=== PATIENT | female | born 1960 | race Caucasian/White ===

== ENCOUNTER 2018-11-03 18:36 | Emergency (ER) | payer OTHER ==
[~2018-11-03] VITALS: Ht 165.1 cm; Wt 55.3 kg
[2018-11-03] MEDS ORDERED: LEXAPRO5 MG (18:50)
[2018-11-03] MEDS ORDERED: CIPRO100 MG (18:51)
== END 2018-11-03 23:36 | disposition home or self-care (01) ==
LOC: ER 18:36
DX: N83.292 Other ovarian cyst, left side (principal); M54.5 Low back pain; R10.2 Pelvic and perineal pain; K80.20 Calculus of gallbladder without cholecystitis without obstruction

== ENCOUNTER 2019-04-15 15:25 | Outpatient (CLI) | payer OTHER ==
[~2019-04-15 15:25] MED LIST: CIPRO100 MG; LEXAPRO5 MG
== END 2019-04-15 15:27 | disposition home or self-care (01) ==
LOC: RAD 15:25
DX: M25.561 Pain in right knee (principal); M54.6 Pain in thoracic spine

== ENCOUNTER 2019-05-11 10:04 | Outpatient (CLI) | payer OTHER | END 2019-05-11 15:02 | disposition home or self-care (01) | LOC: RAD 10:04 | DX: M54.5 Low back pain (principal); M54.2 Cervicalgia ==

== ENCOUNTER 2019-05-11 10:46 | Outpatient (CLI) | payer OTHER | END 2019-05-11 11:18 | disposition home or self-care (01) | LOC: LAB 10:46 | DX: E55.9 Vitamin D deficiency, unspecified (principal); M85.88 Other specified disorders of bone density and structure, other site; E21.3 Hyperparathyroidism, unspecified; E88.89 Other specified metabolic disorders; M81.8 Other osteoporosis without current pathological fracture; E56.1 Deficiency of vitamin K ==

== ENCOUNTER 2019-05-11 10:56 | Outpatient (CLI) | payer OTHER | END 2019-05-11 11:19 | disposition home or self-care (01) | LOC: LAB 10:56 | DX: R10.2 Pelvic and perineal pain (principal); N83.292 Other ovarian cyst, left side; R19.09 Other intra-abdominal and pelvic swelling, mass and lump; N95.1 Menopausal and female climacteric states ==

== ENCOUNTER 2019-08-08 13:13 | Emergency (ER) | payer OTHER ==
[~2019-08-08] VITALS: Ht 162.6 cm; Wt 55.3 kg
[2019-08-08] MEDS ORDERED: BENICAR20 MG (13:36)
== END 2019-08-08 18:34 | disposition home or self-care (01) ==
LOC: ER 13:13
DX: R42 Dizziness and giddiness (principal); M54.89 Other dorsalgia

== ENCOUNTER 2021-10-17 15:03 | Outpatient (CLI) | payer OTHER ==
[~2021-10-17 15:03] MED LIST changes: +BENICAR20 MG
== END 2021-10-17 15:14 | disposition home or self-care (01) ==
LOC: RAD 15:03
PROVIDERS: ATTEND Orthopaedic Surgery
DX: M79.642 Pain in left hand (principal)

== ENCOUNTER 2022-04-25 17:55 | Outpatient (CLI) | payer OTHER | END 2022-04-25 18:01 | disposition home or self-care (01) | LOC: RAD 17:55 | PROVIDERS: ATTEND Orthopaedic Surgery | DX: M18.12 Unilateral primary osteoarthritis of first carpometacarpal joint, left hand (principal); M79.641 Pain in right hand ==

== ENCOUNTER 2022-09-05 12:30 | Outpatient (CLI) | payer OTHER ==
[2022-09-06] MEDS ORDERED: COZAAR25 MG PO (15:41)
== END 2022-09-05 12:45 | disposition home or self-care (01) ==
LOC: RAD 12:30
PROVIDERS: ATTEND Orthopaedic Surgery
DX: I49.9 Cardiac arrhythmia, unspecified (principal); I10 Essential (primary) hypertension; Z76.89 Persons encountering health services in other specified circumstances; D64.9 Anemia, unspecified; E88.9 Metabolic disorder, unspecified; D68.8 Other specified coagulation defects; N39.0 Urinary tract infection, site not specified; A49.02 Methicillin resistant Staphylococcus aureus infection, unspecified site; E11.9 Type 2 diabetes mellitus without complications; M54.50 Low back pain, unspecified

== ENCOUNTER 2022-09-10 08:39 | Day surgery (SDC) | payer OTHER ==
[~2022-09-10] VITALS: Ht 165.1 cm; Wt 58.1 kg
[~2022-09-10 08:39] MED LIST changes: +COZAAR25 MG PO
== END 2022-09-10 16:30 | disposition home or self-care (01) ==
LOC: CIR.AMB 08:39
PROVIDERS: ATTEND Orthopaedic Surgery
DX: M18.12 Unilateral primary osteoarthritis of first carpometacarpal joint, left hand (principal); Z88.8 Allergy status to other drugs, medicaments and biological substances; I10 Essential (primary) hypertension; F17.210 Nicotine dependence, cigarettes, uncomplicated

== ENCOUNTER 2022-09-11 22:15 | Emergency (ER) | payer OTHER ==
[~2022-09-11] VITALS: Ht 165.1 cm; Wt 70.8 kg
== END 2022-09-11 22:46 | disposition home or self-care (01) ==
LOC: ER 22:15
DX: M79.642 Pain in left hand (principal); I10 Essential (primary) hypertension; Z88.8 Allergy status to other drugs, medicaments and biological substances

== ENCOUNTER 2022-11-13 14:03 | Outpatient (CLI) | payer OTHER | END 2022-11-13 14:12 | disposition home or self-care (01) | LOC: RAD 14:03 | PROVIDERS: ATTEND Orthopaedic Surgery | DX: M79.642 Pain in left hand (principal); M18.12 Unilateral primary osteoarthritis of first carpometacarpal joint, left hand ==

== ENCOUNTER 2022-12-19 14:15 | Outpatient (CLI) | payer OTHER | END 2022-12-19 14:24 | disposition home or self-care (01) | LOC: RAD 14:15 | PROVIDERS: ATTEND Orthopaedic Surgery | DX: M18.12 Unilateral primary osteoarthritis of first carpometacarpal joint, left hand (principal); M76.42 Tibial collateral bursitis [Pellegrini-Stieda], left leg ==

== ENCOUNTER 2023-01-30 12:48 | Outpatient (CLI) | payer OTHER | END 2023-01-30 13:00 | disposition home or self-care (01) | LOC: RAD 12:48 | PROVIDERS: ATTEND Orthopaedic Surgery | DX: M79.642 Pain in left hand (principal) ==

== ENCOUNTER 2023-04-03 14:33 | Outpatient (CLI) | payer OTHER | END 2023-04-03 14:43 | disposition home or self-care (01) | LOC: RAD 14:33 | PROVIDERS: ATTEND Orthopaedic Surgery | DX: M18.12 Unilateral primary osteoarthritis of first carpometacarpal joint, left hand (principal); M79.642 Pain in left hand ==

== ENCOUNTER 2024-06-24 14:05 | Outpatient (CLI) | payer OTHER | END 2024-06-24 14:18 | disposition home or self-care (01) | LOC: RAD 14:05 | PROVIDERS: ATTEND Orthopaedic Surgery | DX: M25.562 Pain in left knee (principal); M25.512 Pain in left shoulder; M79.642 Pain in left hand ==